=== PATIENT | male | born 2000 | race Caucasian/White ===

== ENCOUNTER 2023-05-14 11:43 | Emergency (ER) | payer BC ==
[~2023-05-14] VITALS: Ht 182 cm; Wt 77.0 kg
--- NOTE | 2023-05-14 12:11 | ED Abdominal Pain ---
General Chief Complaint: Abdominal/GI Problems Stated Complaint: VOMITING/NAUSEA Nursing Triage Note: pt presents to ed via pov from home with complaints of n/v since early this am. pt also reports bilateral flank pain. pt states he attended a wedding last night in which he drank more than normal-( 4 beers and 4 old fashions), and woke up unable to keep any liquids down. Source of Information: Patient Exam Limitations: No Limitations History of Present Illness Date Seen by Provider: May 14, 2023 Time Seen by Provider: 12:11 Initial Comments Patient is a 23-year-old male who presents to the emergency room with a chief complaint of right flank pain, nausea vomiting. Patient states that he got up this morning and his symptoms started shortly afterwards. He did attend a wedding last night and drank quite a bit, 4 beers and 4 mixed drinks. He states he does not feel like this is related to being "hung over". He states the pain radiates from his right flank down into his right groin and testicle. He has no history of kidney stones. He does not take any daily medications. No prior abdominal surgeries. He does not believe he has urinated yet today. He did have a bowel movement just prior to arrival. No fevers or chills. On presentation he is dry heaving into a bucket at the bedside. Vital signs are stable. Timing/Duration: 4-6 Hours Severity/Quality: Severe, Cramping Location: Flank (right) Radiation: Groin (right) Activities at Onset: None Associated Symptoms: Nausea/Vomiting Allergies and Home Medications Allergies Coded Allergies: No Known Drug Allergies (Verified Allergy, Unknown, 11/03/07) Patient Home Medication List Home Medication List Reviewed: Yes Review of Systems Review of Systems Constitutional: see HPI EENTM: No Symptoms Reported Respiratory: No Symptoms Reported Cardiovascular: No Symptoms Reported Gastrointestinal: Abdominal Pain, Nausea, Vomiting Genitourinary: Other (right testicle discomfort) Musculoskeletal: no symptoms reported Skin: no symptoms reported Psychiatric/Neurological: No Symptoms Reported All Other Systems Reviewed Negative Unless Noted: Yes Past Miiskes-Zacugb-Yxqtml Hx Patient Social History Tobacco Use?: No Use of E-Cig and/or Vaping dev: Yes E-Cig or Vaping type used: Nicotine Use of E-Cig and/or Vaping Bridger: Current Everyday User Substance use?: Yes Substance type: Marijuana Substance frequency: Several times a month Alcohol Use?: Yes Alcohol Frequency: Once in a while Pt feels they are or have been: No Physical Exam Vital Signs Vital Signs - First Documented 05/14/23 12:05 Temp 36.7 Pulse 69 Resp 16 B/P (MAP) 132/76 (94) Pulse Ox 98 Capillary Refill : Less Than 3 Seconds Height/Weight/BMI Height: '" Weight: lbs. oz. kg; 23.00 BMI Method: General Appearance: WD/WN, mild distress, thin HEENT: PERRL/EOMI Respiratory: lungs clear, normal breath sounds, no respiratory distress, no accessory muscle use Cardiovascular: regular rate, rhythm Gastrointestinal: non tender, soft, abnormal bowel sounds (hypoactive) Extremities: normal range of motion, non-tender, normal inspection, no pedal edema Back: normal inspection Neurologic/Psychiatric: alert, normal mood/affect, oriented x 3 Skin: normal color, warm/dry Progress/Results/Core Measures Results/Orders Lab Results Laboratory Tests Test 05/14/23 12:04 05/14/23 15:08 Range/Units White Blood Count 18.6 H 4.3-11.0 10^3/uL Red Blood Count 5.00 4.30-5.52 10^6/uL Hemoglobin 15.5 13.3-17.7 g/dL Hematocrit 45 40-54 % Mean Corpuscular Volume 89 80-99 fL Mean Corpuscular Hemoglobin 31 25-34 pg Mean Corpuscular Hemoglobin Concent 35 32-36 g/dL Red Cell Distribution Width 12.1 10.0-14.5 % Platelet Count 245 130-400 10^3/uL Mean Platelet Volume 10.1 9.0-12.2 fL Immature Granulocyte % (Auto) 1 % Neutrophils (%) (Auto) 88 H 42-75 % Lymphocytes (%) (Auto) 8 L 12-44 % Monocytes (%) (Auto) 3 0-12 % Eosinophils (%) (Auto) 0 0-10 % Basophils (%) (Auto) 1 0-10 % Neutrophils # (Auto) 16.5 H 1.8-7.8 10^3/uL Lymphocytes # (Auto) 1.5 1.0-4.0 10^3/uL Monocytes # (Auto) 0.5 0.0-1.0 10^3/uL Eosinophils # (Auto) 0.0 0.0-0.3 10^3/uL Basophils # (Auto) 0.1 0.0-0.1 10^3/uL Immature Granulocyte # (Auto) 0.1 0.0-0.1 10^3/uL Neutrophils % (Manual) 92 % Lymphocytes % (Manual) 5 % Monocytes % (Manual) 1 % Eosinophils % (Manual) 1 % Basophils % (Manual) 0 % Band Neutrophils 1 % Blood Morphology Comment NORMAL Sodium Level 144 135-145 MMOL/L Potassium Level 4.2 3.6-5.0 MMOL/L Chloride Level 108 H 98-107 MMOL/L Carbon Dioxide Level 21 21-32 MMOL/L Anion Gap 15 H 5-14 MMOL/L Blood Urea Nitrogen 12 7-18 MG/DL Creatinine 0.87 0.60-1.30 MG/DL Estimat Glomerular Filtration Rate 124 BUN/Creatinine Ratio 14 Glucose Level 101 70-105 MG/DL Calcium Level 9.9 8.5-10.1 MG/DL Corrected Calcium 8.5-10.1 MG/DL Total Bilirubin 0.6 0.1-1.0 MG/DL Aspartate Amino Transf (AST/SGOT) 25 5-34 U/L Alanine Aminotransferase (ALT/SGPT) 25 0-55 U/L Alkaline Phosphatase 68 40-136 U/L Total Protein 7.9 6.4-8.2 GM/DL Albumin 4.9 H 3.2-4.5 GM/DL Lipase 12 8-78 U/L Urine Color YELLOW Urine Clarity CLEAR Urine pH 6.0 5-9 Urine Specific [place] >=1.030 1.016-1.022 Urine Protein NEGATIVE NEGATIVE Urine Glucose (UA) NEGATIVE NEGATIVE Urine Ketones 3+ H NEGATIVE Urine Nitrite NEGATIVE NEGATIVE Urine Bilirubin NEGATIVE NEGATIVE Urine Urobilinogen 0.2 < = 1.0 MG/DL Urine Leukocyte Esterase NEGATIVE NEGATIVE Urine RBC (Auto) NEGATIVE NEGATIVE Urine RBC NONE /HPF Urine WBC RARE /HPF Urine Crystals NONE /LPF Urine Bacteria NEGATIVE /HPF Urine Casts NONE /LPF Urine Mucus SMALL H /LPF Urine Culture Indicated NO My Orders Orders - GIANA BACON MD Ed Iv/Invasive Line Start (05/14/23 12:21) Cbc With Automated Diff (05/14/23 12:21) Comprehensive Metabolic Panel (05/14/23 12:21) Lipase (05/14/23 12:21) Ua Culture If Indicated (05/14/23 12:21) Ns Iv 1000 Ml (Sodium Chloride 0.9%) (05/14/23 12:21) Ondansetron Injection (Zofran Injectio (05/14/23 12:30) Ketorolac Injection (Toradol Injection) (05/14/23 12:30) Manual Differential (05/14/23 12:04) Abdomen/Kub 1view (05/14/23 12:50) Ct Abd/Pelvis Wo(Kidney Stone) (05/14/23 12:50) Ns Iv 1000 Ml (Sodium Chloride 0.9%) (05/14/23 13:13) Ct Abd/Pelv W (Appendicitis) (05/14/23 14:37) Fentanyl Inj (Sublimaze Injection) (05/14/23 14:45) Iohexol Injection (Omnipaque 350 Mg/Ml 1 (05/14/23 14:45) Received Contrast (Hold Metformin- Contr (05/14/23 14:45) Ns (Ivpb) (Sodium Chloride 0.9% Ivpb Bag (05/14/23 14:45) Medications Given in ED Current Medications Medications Dose Ordered Sig/Lauren Route Start Time Stop Time Status Last Admin Dose Admin Fentanyl Citrate 25 mcg ONCE ONCE IVP 05/14/23 14:45 05/14/23 14:46 DC 05/14/23 14:44 25 MCG Iohexol 100 ml ONCE ONCE IV 05/14/23 14:45 05/14/23 14:46 DC 05/14/23 15:28 80 ML Ketorolac Tromethamine 15 mg ONCE ONCE IVP 05/14/23 12:30 05/14/23 12:31 DC 05/14/23 12:27 15 MG Ondansetron HCl 4 mg ONCE ONCE IVP 05/14/23 12:30 05/14/23 12:31 DC 05/14/23 12:26 4 MG Sodium Chloride 100 ml ONCE ONCE IV 05/14/23 14:45 05/14/23 14:46 DC 05/14/23 15:29 80 ML Vital Signs/I&O 05/14/23 12:05 Temp 36.7 Pulse 69 Resp 16 B/P (MAP) 132/76 (94) Pulse Ox 98 Blood Pressure Mean: 94 Progress Progress Note #1: Time: 14:15 Progress Note nausea better; still with pain RLQ; willsend back for scan with IV contrast Progress Note #2: Time: 15:56 Progress Note Patient seen and evaluated by me. Evaluation today includes physical exam, CBC, basic metabolic panel, urinalysis, CT of the abdomen and pelvis with and without contrast. Pertinent physical exam findings thin well-developed well-nourished 23-year-old male in moderate to significant distress with dry heaves and right flank pain. He has mildly tender abdomen without involuntary rebound but has guarding. Very hypoactive bowel sounds. Positive heeltap. No lower extremity edema. Negative psoas. Heart is regular, lungs are clear. Differential diagnosis based on history and physical exam renal colic/ureteral stone, acute appendicitis, bowel obstruction. Labs independently reviewed and interpreted by me. CBC shows total white blood cell count of 18.6 with 88% segmented neutrophils. Hemoglobin is 15.5 hematocrit 45 platelet count of 245. Chem-12 is grossly within normal limits, his anion gap is slightly increased at 15. Urinalysis is clear of infection however very concentrated with 3+ ketones and high specific gravity at greater than 1.030. Patient is treated with 2 L of IV fluids here in the department, Zofran and Toradol. He is also given [address] scan of the abdomen and pelvis without contrast is unremarkable for kidney stone and the patient was rescanned with IV contrast which revealed lymphadenitis in the right lower quadrant consistent with mesenteric adenitis. No evidence of acute appendicitis. Patient is feeling better at the time of discharge. He is sipping on Sprite his nausea is much improved. Will place the patient on 5 days of Augmentin and send him home with some Zofran. Return precautions have been provided in both verbal and written format. All questions are sought and answered. Patient is improved at discharge Diagnostic Imaging Diagonstic Imaging: Xray Comments [facility], [place] NAME: ALBINAMILAGROS Cruzito [facility] REC#: [id number] PT STATUS: REG ER : 2000 PHYSICIAN: GIANA BACON MD ADMIT DATE: 05/14/23/ER Signed Date of Exam:05/14/23 ABDOMEN/KUB 1VIEW EXAMINATION: Abdomen 1 view HISTORY: right flank pain COMPARISON: None available. FINDINGS: There is a moderate amount of gas and stool throughout the colon. Nonobstructive bowel gas pattern. No radiopaque foreign body. The lung bases are clear. The osseous structures are intact. IMPRESSION: Moderate stool burden without other acute abnormality in the abdomen. Dictated by: Dictated on workstation # [id number] Dict: 05/14/23 1310 Trans: 05/14/23 1423 [facility] [id number] Interpreted by: HEAVENLY ADAMS DO Electronically signed by: HEAVENLY ADAMS DO 05/14/23 1423 Diagonstic Imaging: CT Comments [facility], [place] NAME: MILAGROS MONTEMAYOR [facility] REC#: [id number] PT STATUS: REG ER : 2000 PHYSICIAN: GIANA BACON MD ADMIT DATE: 05/14/23/ER Signed Date of Exam:05/14/23 CT ABD/PELVIS WO(KIDNEY STONE) EXAMINATION: CT abdomen and pelvis without contrast. TECHNIQUE: Multiple contiguous axial images were obtained through the abdomen and pelvis without the use of intravenous contrast. All CT scans use one or more of the following dose optimizing techniques: automated exposure control, MA and/or KvP adjustment based on patient size and exam type or iterative reconstruction. HISTORY: Flank pain, kidney stone suspected COMPARISON: None available. FINDINGS: Lung bases: The lung bases are clear. Solid organs: The liver is normal. The gallbladder is normal. There is no biliary ductal dilation. Pancreas is normal. Spleen is normal. Adrenal glands are normal. The kidneys are normal without visualized calculus or hydronephrosis. Bowel: The stomach and small bowel are normal without obstruction. The colon is normal. The appendix is normal. Peritoneum: There is no intraperitoneal free fluid or free air. No suspicious lymphadenopathy. Vasculature: Normal without aneurysm. Musculoskeletal: No suspicious osseous lesion or compression fracture. Pelvis: The prostate gland is normal. The urinary bladder is normal. IMPRESSION: 1. No acute abnormality in the abdomen or pelvis. 2. No visualized renal calculus or hydronephrosis. Dictated by: Dictated on workstation # [id number] Dict: 05/14/23 1314 Trans: 05/14/23 1423 [facility] [id number] Interpreted by: HEAVENLY ADAMS DO Electronically signed by: HEAVENLY ADAMS DO 05/14/23 1423 Diagonstic Imaging: CT Comments [facility] [place] NAME: MILAGROS MONTEMAYOR [facility] REC#: [id number] PT STATUS: REG ER : 2000 PHYSICIAN: GIANA BACON MD ADMIT DATE: 05/14/23/ER Signed Date of Exam:05/14/23 CT ABD/PELV W (APPENDICITIS) EXAMINATION: CT abdomen and pelvis with intravenous contrast. TECHNIQUE: Multiple contiguous axial images were obtained through the abdomen and pelvis after the uneventful administration of intravenous contrast. All CT scans use one or more of the following dose optimizing techniques: automated exposure control, MA and/or KvP adjustment based on patient size and exam type or iterative reconstruction. HISTORY: RLQ pain. COMPARISON: 05/14/2023. FINDINGS: Lung bases: The lung bases are clear. Solid organs: The liver is normal without focal lesion. The gallbladder is normal. There is no biliary ductal dilation. Pancreas is normal. Spleen is normal. Adrenal glands are normal. The kidneys are normal without hydronephrosis. Bowel: The stomach and small bowel are normal without obstruction. The colon is normal. The appendix is normal. Peritoneum: There is no intraperitoneal free fluid or free air. There are a few prominent lymph nodes within the right lower quadrant mesentery. The largest measures 2.4-1.4 cm. Vasculature: Normal without aneurysm. Musculoskeletal: No suspicious osseous lesion or compression fracture. Pelvis: The prostate gland is normal. The urinary bladder is normal. IMPRESSION: 1. No acute abnormality in the abdomen or pelvis. 2. Prominent right lower quadrant lymph nodes which are nonspecific but could be seen with mesenteric adenitis in the appropriate clinical setting. Dictated by: Dictated on workstation # [id number] Dict: 05/14/23 1535 Trans: 05/14/23 1540 [facility] [id number] Interpreted by: HEAVENLY ADAMS DO Electronically signed by: HEAVENLY ADAMS DO 05/14/23 1540 Departure Impression Primary Impression: Mesenteric adenitis Disposition: HOME, SELF-CARE Condition: Stable Departure-Patient Inst. Decision time for Depature: 15:53 Referrals: WINTER DAVIES MD (PCP/Family) Primary Care Physician Patient Instructions: Mesenteric Lymphadenitis (DC) Add. Discharge Instructions: Drink plenty of fluids over the next 24 to 48 hours to stay well-hydrated. I have sent a prescription for Zofran/Ondansetron 4 mg orally dissolving tablets for nausea. You can take 1 every 6-8 hours as needed. Amoxicillin/clavulanic acid 875 mg tablets -this is an antibiotic you will take 1 twice daily for a total of 5 days. Start taking this tonight. You can take [id number] extra strength Tylenol 2 tablets every 6 hours or 3 tablets of generic ibuprofen which is 600 mg every 6 hours with food as needed for pain. If you develop high fever, worsening pain and vomiting please return to the emergency department for reevaluation. Scripts Ondansetron (Ondansetron Odt) 4 Mg Tab.rapdis 4 MG SL Q8H PRN for NAUSEA/VOMITING, #12 TAB Prov: GIANA BACON MD 05/14/23 Amoxicillin/Potassium Clav (Amox Tr-K Clv 875-125 mg Tab) 875 Mg-125 Mg Tablet 1 EACH PO BID for 5 Days, #10 TAB Prov: GIANA BACON MD 05/14/23 Work/School Note: Work Release Form Date Seen in the Emergency Department: May 14, 2023 Return to Work: May 16, 2023 GIANA BACON MD May 14, 2023 12:11
[2023-05-14] MEDS ORDERED: NS IV 1000 ML 1,000 ML IV STA ×2 (12:21→13:13)
[2023-05-14] MEDS ORDERED: ONDANSETRON 4 MG/2 ML (SDV) Z0FRAN IVP ONE (12:30)
[2023-05-14] MEDS ORDERED: KETOROLAC 15 MG/ML VIAL IVP ONE (12:30)
[2023-05-14 12:34] LABS: ALBUMIN 4.9 GM/DL (3.2-4.5)
[2023-05-14 12:35] LABS: CHLORIDE 108 MMOL/L (98-107); POTASSIUM 4.2 MMOL/L (3.6-5.0); SODIUM 144 MMOL/L (135-145)
[2023-05-14 12:36] LABS: BASOPHILS # (AUTO) 0.1 10^3/uL (0.0-0.1); BASOPHILS % (AUTO) 1 % (0-10); CALCIUM 9.9 MG/DL (8.5-10.1); EOSINOPHILS % (AUTO) 0 % (0-10); HEMATOCRIT 45 % (40-54); HEMOGLOBIN 15.5 g/dL (13.3-17.7); LYMPHOCYTES # (AUTO) 1.5 10^3/uL (1.0-4.0); LYMPHOCYTES % (AUTO) 8 % (12-44); MEAN CORPUSCULAR HEMOGLOBIN 31 pg (25-34); MEAN CORPUSCULAR HGB CONC 35 g/dL (32-36); MEAN CORPUSCULAR VOLUME 89 fL (80-99); MEAN PLATELET VOLUME 10.1 fL (9.0-12.2); MONOCYTES # (AUTO) 0.5 10^3/uL (0.0-1.0); MONOCYTES % (AUTO) 3 % (0-12); NEUTROPHILS # (AUTO) 16.5 10^3/uL (1.8-7.8); NEUTROPHILS % (AUTO) 88 % (42-75); PLATELET COUNT 245 10^3/uL (130-400); WHITE BLOOD COUNT 18.6 10^3/uL (4.3-11.0)
[2023-05-14 12:37] LABS: GLUCOSE 101 MG/DL (70-105); TOTAL PROTEIN 7.9 GM/DL (6.4-8.2)
[2023-05-14 12:38] LABS: CARBON DIOXIDE 21 MMOL/L (21-32)
[2023-05-14 12:39] LABS: BILIRUBIN,TOTAL 0.6 MG/DL (0.1-1.0)
[2023-05-14 12:40] LABS: ALKALINE PHOSPHATASE 68 U/L (40-136)
[2023-05-14 12:41] LABS: CREATININE SERUM 0.87 MG/DL (0.60-1.30); GFR ESTIMATED 124
[2023-05-14 12:42] LABS: BUN/CREATININE RATIO 14
[2023-05-14 12:44] LABS: ALANINE AMINOTRANSFERASE 25 U/L (0-55); LIPASE 12 U/L (8-78)
[2023-05-14 12:53] LABS: BAND NEUTROPHILS 1 %; BASOPHILS % (MANUAL) 0 %; EOSINOPHILS % (MANUAL) 1 %; LYMPHOCYTES % (MANUAL) 5 %; MONOCYTES % (MANUAL) 1 %; NEUTROPHILS % (MANUAL) 92 %; RBC MORPH NORMAL
--- NOTE | 2023-05-14 13:21 | Diagnostic Imaging Report ---
EXAMINATION: Abdomen 1 view HISTORY: right flank pain COMPARISON: None available. FINDINGS: There is a moderate amount of gas and stool throughout the colon. Nonobstructive bowel gas pattern. No radiopaque foreign body. The lung bases are clear. The osseous structures are intact. IMPRESSION: Moderate stool burden without other acute abnormality in the abdomen. Dictated by: Dictated on workstation # [id number]
--- NOTE | 2023-05-14 13:22 | Diagnostic Imaging Report ---
EXAMINATION: CT abdomen and pelvis without contrast. TECHNIQUE: Multiple contiguous axial images were obtained through the abdomen and pelvis without the use of intravenous contrast. All CT scans use one or more of the following dose optimizing techniques: automated exposure control, MA and/or KvP adjustment based on patient size and exam type or iterative reconstruction. HISTORY: Flank pain, kidney stone suspected COMPARISON: None available. FINDINGS: Lung bases: The lung bases are clear. Solid organs: The liver is normal. The gallbladder is normal. There is no biliary ductal dilation. Pancreas is normal. Spleen is normal. Adrenal glands are normal. The kidneys are normal without visualized calculus or hydronephrosis. Bowel: The stomach and small bowel are normal without obstruction. The colon is normal. The appendix is normal. Peritoneum: There is no intraperitoneal free fluid or free air. No suspicious lymphadenopathy. Vasculature: Normal without aneurysm. Musculoskeletal: No suspicious osseous lesion or compression fracture. Pelvis: The prostate gland is normal. The urinary bladder is normal. IMPRESSION: 1. No acute abnormality in the abdomen or pelvis. 2. No visualized renal calculus or hydronephrosis. Dictated by: Dictated on workstation # [id number]
[2023-05-14] MEDS ORDERED: fentaNYL INJ 100 MCG/2 ML AMP IVP ONE (14:45)
[2023-05-14] MEDS ORDERED: NS 100 ML (IVPB) BAG IV ONE (14:45)
[2023-05-14] MEDS ORDERED: IOHEXOL 350 MG/ML 100 ML (OMNIPAQUE 350) VIAL IV ONE (14:45)
[2023-05-14] MEDS ORDERED: HOLD METFORMIN - RECEIVED CONTRAST 20 ML VIAL IV SCH (14:45)
[2023-05-14 15:14] LABS: BILIRUBIN,URINE NEGATIVE (NEGATIVE); CLARITY,URINE CLEAR; COLOR,URINE YELLOW; GLUCOSE, URINE (UA) NEGATIVE (NEGATIVE); KETONES,URINE 3+ (NEGATIVE); LEUKOCYTE ESTERASE ,URINE NEGATIVE (NEGATIVE); NITRITE,URINE NEGATIVE (NEGATIVE); PROTEIN,URINE NEGATIVE (NEGATIVE)
[2023-05-14 15:28] LABS: BACTERIA,URINE NEGATIVE /HPF; WBC,URINE RARE /HPF
--- NOTE | 2023-05-14 15:40 | Diagnostic Imaging Report ---
EXAMINATION: CT abdomen and pelvis with intravenous contrast. TECHNIQUE: Multiple contiguous axial images were obtained through the abdomen and pelvis after the uneventful administration of intravenous contrast. All CT scans use one or more of the following dose optimizing techniques: automated exposure control, MA and/or KvP adjustment based on patient size and exam type or iterative reconstruction. HISTORY: RLQ pain. COMPARISON: 05/14/2023. FINDINGS: Lung bases: The lung bases are clear. Solid organs: The liver is normal without focal lesion. The gallbladder is normal. There is no biliary ductal dilation. Pancreas is normal. Spleen is normal. Adrenal glands are normal. The kidneys are normal without hydronephrosis. Bowel: The stomach and small bowel are normal without obstruction. The colon is normal. The appendix is normal. Peritoneum: There is no intraperitoneal free fluid or free air. There are a few prominent lymph nodes within the right lower quadrant mesentery. The largest measures 2.4-1.4 cm. Vasculature: Normal without aneurysm. Musculoskeletal: No suspicious osseous lesion or compression fracture. Pelvis: The prostate gland is normal. The urinary bladder is normal. IMPRESSION: 1. No acute abnormality in the abdomen or pelvis. 2. Prominent right lower quadrant lymph nodes which are nonspecific but could be seen with mesenteric adenitis in the appropriate clinical setting. Dictated by: Dictated on workstation # [id number]
[2023-05-14] MEDS ORDERED: AMOX1TAB12 PO (15:54)
[2023-05-14] MEDS ORDERED: ONDA4TAB11 SL (15:54)
[2023-05-14 16:09] VITALS: BP 139/89
== END 2023-05-14 16:09 | disposition home or self-care (01) ==
LOC: EDUNIT# 11:43 → ER 11:46
DX: I88.0 Nonspecific mesenteric lymphadenitis (principal); F17.290 Nicotine dependence, other tobacco product, uncomplicated
CPT/HCPCS: 36415; 74018; 74176; 74177; 80053; 81000; 83690; 85007; 85027